=== PATIENT | male | born 1955 ===

== ENCOUNTER 2023-06-01 00:43 | Inpatient (IN) ==
[2023-06-01] MEDS ORDERED: Norepinephrine 4 MG/250mL D5W 4,000 MCG/250 ML BAG IV ONE (01:57)
[2023-06-01] MEDS: Norepinephrine 4 MG/250mL D5W 4,000 MCG/250 ML BAG IV SCH ×2 (03:25→07:54)
[2023-06-01 04:41] LABS: ABS Eosinophils 0.1 10^3/uL (0.0-0.5); ABS Lymphocytes 0.2 10^3/uL (1.0-4.8); ABS Monocytes 0.2 10^3/uL (0.0-1.1); Eosinophil % 2.1 %; Hematocrit 29.7 % (38-53); Hemoglobin 10.4 g/dL (13.2-16.3); Lymphocyte % 4.1 %; Mean Corpuscular Hemoglobin 32.8 pg (27-33); Mean Corpuscular Hgb Conc 34.9 g/dL (31-36); Platelet Count 134 10^3/uL (150-450); Red Blood Count 3.16 10^6/uL (4.06-5.63); Red Cell Distribution Width 13.4 % (12-17); White Blood Count 5.6 10^3/uL (3.6-10.2)
[2023-06-01 04:58] LABS: Albumin 3.1 g/dL (3.2-5.2); Albumin/Globulin Ratio 1.1 (1-3); Calcium 7.1 mg/dL (8.6-10.3); Creatinine, Serum 3.96 mg/dL (0.67-1.17); Globulin 2.7 g/dL (2-4); Magnesium 1.6 mg/dL (1.9-2.7); Potassium 4.6 mmol/L (3.5-5.0); Total Bilirubin 1.7 mg/dL (0.2-1.0); Total Protein 5.8 g/dL (6.4-8.9); eGFR CKD-EPI 15.6 (>60)
[2023-06-01] MEDS ORDERED: Cefepime 1 GM in Dextrose 1 GM/50 ML BAG IV ONE (05:00)
[2023-06-01] MEDS ORDERED: Lactated Ringers 1000 ml BAG 1,000 ML IV SCH (05:00)
[2023-06-01 05:53] LABS: TSH Ultra Thyroid Stim Horm 2.84 mcIU/mL (0.34-5.60)
[2023-06-01] MEDS ORDERED: Enoxaparin 40 MG/0.4 ML SYR SUBCUT SCH (06:00)
[2023-06-01 06:10] LABS: Rapid COVID-19 Molecular Undetected (Undetected)
[2023-06-01 06:12] LABS: Influenza A Molecular Negative (Negative); Influenza B Molecular Negative (Negative)
[2023-06-01] MEDS ORDERED: Magnesium Sulfate 2 gm BAG 2 GM/50 ML BAG IVPB ONE (06:14)
[2023-06-01] MEDS ORDERED: Lactated Ringers 1000 ml BAG 1,000 ML IV ONE (07:05)
[2023-06-01] MEDS ORDERED: NS 0.9% 1000 ml BAG 1,000 ML IV ONE (07:14)
[2023-06-01] MEDS ORDERED: HYDROmorphone 0.5 MG/0.5 ML SYRINGE IV SLOW PU PRN ×2 (08:03→14:16)
[2023-06-01 08:18] LABS: Direct Bilirubin 1.2 mg/dL (0.03-0.18); Indirect Bilirubin 0.5 mg/dL (0.3-1.0)
[2023-06-01 10:07] LABS: Urine Appearance Turbid; Urine Bilirubin Negative (Negative); Urine Blood Negative (Negative); Urine Color Amber; Urine Glucose Negative (Negative); Urine Ketones Negative (Negative); Urine Nitrite Negative (Negative); Urine Protein 2+(100 mg/dL) (Negative); Urine Specific Gravity 1.015 (1.002-1.030); Urine Urobilinogen Negative (Negative)
[2023-06-01 10:15] LABS: Urine Bacteria Absent (Absent); Urine Granular Casts Present (Absent); Urine Red Blood Cell 2+(6-10/hpf) (Absent); Urine White Blood Cell 3+(>20/hpf) (Absent)
[2023-06-01 10:18] LABS: Urine Creatinine Concentration 137.18 mg/dL (20.00-370.00); Urine Sodium Concentration < 18 mmol/L
[2023-06-01 10:59] LABS: Urine Osmo 251 mOsm/kg (150-1150)
[2023-06-01] MEDS: Azithromycin 500 mg/250 ml NS 500 MG/250 ML BAG IVPB SCH (12:19)
[2023-06-01] MEDS: Norepinephrine 16 MG/250mL NS 16,000 MCG/250 ML BAG IV SCH (12:50)
[2023-06-01 12:58] LABS: Calcium 7.2 mg/dL (8.6-10.3); Creatinine, Serum 3.95 mg/dL (0.67-1.17); Potassium 4.7 mmol/L (3.5-5.0); eGFR CKD-EPI 15.7 (>60)
[2023-06-01] MEDS: HYDROmorphone 0.5 MG/0.5 ML SYRINGE IV SLOW PU PRN ×2 (14:41→20:26)
[2023-06-01] MEDS: Heparin 5000 UNITS/ML 1 mL VIAL SUBCUT SCH ×2 (14:43→20:48)
[2023-06-01] MEDS ORDERED: Furosemide 100 mg/10 ml IV VIAL IV ONE (15:25)
[2023-06-01] MEDS ORDERED: Cefepime 1 GM in Dextrose 1 GM/50 ML BAG IV SCH (17:00)
[2023-06-01] MEDS ORDERED: Levalbuterol 1.25MG/0.5ML NEB.SOL INH PRN (18:58)
[2023-06-01] MEDS: Cefepime 1 GM in Dextrose 1 GM/50 ML BAG IV SCH (20:18)
[2023-06-01 22:54] LABS: Calcium 7.3 mg/dL (8.6-10.3); Creatinine, Serum 4.07 mg/dL (0.67-1.17); Potassium 4.5 mmol/L (3.5-5.0); eGFR CKD-EPI 15.1 (>60)
[2023-06-01 23:40] LABS: HIV 4th Generation Nonreactive (Nonreactive)
[2023-06-01 23:51] LABS: C Reactive Protein 313.26 mg/L (<8.01)
[2023-06-02 01:18] LABS: Hepatitis B Surface Antigen Nonreactive (Nonreactive)
[2023-06-02 01:35] LABS: Hepatitis B Surface Ab Not Immune (Immune)
[2023-06-02 01:36] LABS: Hepatitis C Antibody Negative (Negative)
[2023-06-02] MEDS: Norepinephrine 16 MG/250mL NS 16,000 MCG/250 ML BAG IV SCH (02:25)
[2023-06-02] MEDS: HYDROmorphone 0.5 MG/0.5 ML SYRINGE IV SLOW PU PRN ×3 (05:22→20:08)
[2023-06-02] MEDS: Heparin 5000 UNITS/ML 1 mL VIAL SUBCUT SCH ×3 (05:24→21:44)
[2023-06-02 05:50] LABS: ABS Eosinophils 0.1 10^3/uL (0.0-0.5); ABS Lymphocytes 0.3 10^3/uL (1.0-4.8); ABS Monocytes 0.3 10^3/uL (0.0-1.1); ABS Neutrophils 4.9 10^3/uL (1.5-7.6); Hematocrit 29.4 % (38-53); Hemoglobin 10.7 g/dL (13.2-16.3); Lymphocyte % 5.9 %; Mean Corpuscular Hemoglobin 33.8 pg (27-33); Mean Corpuscular Hgb Conc 36.4 g/dL (31-36); Mean Corpuscular Volume 92.8 fL (80-97); Mean Platelet Volume 9.2 fL (7.5-11.2); Nucleated Red Blood Cells % 0.1 %/100WBC (0.0-0.8); Platelet Count 188 10^3/uL (150-450); Red Blood Count 3.17 10^6/uL (4.06-5.63); Red Cell Distribution Width 13.4 % (12-17); White Blood Count 5.7 10^3/uL (3.6-10.2)
[2023-06-02 06:09] LABS: Calcium 7.6 mg/dL (8.6-10.3); Creatinine, Serum 3.98 mg/dL (0.67-1.17); Magnesium 2.2 mg/dL (1.9-2.7); Potassium 4.3 mmol/L (3.5-5.0); eGFR CKD-EPI 15.5 (>60)
[2023-06-02] MEDS: Cefepime 1 GM in Dextrose 1 GM/50 ML BAG IV SCH ×2 (08:45→20:39)
[2023-06-02] MEDS ORDERED: Furosemide 40 mg/4 ml IV VIAL IV ONE (09:49)
[2023-06-02] MEDS: Azithromycin 500 mg/250 ml NS 500 MG/250 ML BAG IVPB SCH (12:49)
[2023-06-02 16:42] LABS: Calcium 7.4 mg/dL (8.6-10.3); Creatinine, Serum 4.41 mg/dL (0.67-1.17); Potassium 4.2 mmol/L (3.5-5.0); eGFR CKD-EPI 13.7 (>60)
[2023-06-02 22:42] LABS: Calcium 7.5 mg/dL (8.6-10.3); Creatinine, Serum 4.48 mg/dL (0.67-1.17); Potassium 4.5 mmol/L (3.5-5.0); eGFR CKD-EPI 13.5 (>60)
[2023-06-03] MEDS: HYDROmorphone 0.5 MG/0.5 ML SYRINGE IV SLOW PU PRN ×4 (01:46→23:33)
[2023-06-03] MEDS: Heparin 5000 UNITS/ML 1 mL VIAL SUBCUT SCH ×3 (05:10→21:31)
[2023-06-03 05:39] LABS: ABS Eosinophils 0.3 10^3/uL (0.0-0.5); ABS Lymphocytes 0.5 10^3/uL (1.0-4.8); ABS Monocytes 0.6 10^3/uL (0.0-1.1); ABS Neutrophils 3.9 10^3/uL (1.5-7.6); Eosinophil % 5.1 %; Hematocrit 29.3 % (38-53); Hemoglobin 10.1 g/dL (13.2-16.3); Lymphocyte % 9.1 %; Mean Corpuscular Hemoglobin 32.3 pg (27-33); Mean Corpuscular Hgb Conc 34.6 g/dL (31-36); Mean Corpuscular Volume 93.4 fL (80-97); Mean Platelet Volume 9.1 fL (7.5-11.2); Platelet Count 199 10^3/uL (150-450); Red Blood Count 3.13 10^6/uL (4.06-5.63); Red Cell Distribution Width 13.8 % (12-17); White Blood Count 5.2 10^3/uL (3.6-10.2)
[2023-06-03 05:54] LABS: Calcium 7.8 mg/dL (8.6-10.3); Creatinine, Serum 4.68 mg/dL (0.67-1.17); Magnesium 2.4 mg/dL (1.9-2.7); Potassium 4.3 mmol/L (3.5-5.0); eGFR CKD-EPI 12.8 (>60)
[2023-06-03] MEDS: Cefepime 1 GM in Dextrose 1 GM/50 ML BAG IV SCH ×2 (07:33→20:20)
[2023-06-03] MEDS: Azithromycin 500 mg/250 ml NS 500 MG/250 ML BAG IVPB SCH (10:53)
[2023-06-04 05:30] LABS: Calcium 7.8 mg/dL (8.6-10.3); Creatinine, Serum 4.89 mg/dL (0.67-1.17); Potassium 4.4 mmol/L (3.5-5.0); eGFR CKD-EPI 12.1 (>60)
[2023-06-04] MEDS: Heparin 5000 UNITS/ML 1 mL VIAL SUBCUT SCH ×3 (05:46→20:37)
[2023-06-04] MEDS: HYDROmorphone 0.5 MG/0.5 ML SYRINGE IV SLOW PU PRN ×3 (06:15→19:23)
[2023-06-04] MEDS: Cefepime 1 GM in Dextrose 1 GM/50 ML BAG IV SCH ×2 (08:30→20:38)
[2023-06-04] MEDS: NS 0.9% 1000 ml BAG 1,000 ML IV SCH ×2 (11:20→23:20)
[2023-06-04 12:54] LABS: Complement C3 105 mg/dL (75 - 175)
[2023-06-04 15:04] LABS: Urine Appearance Clear; Urine Bilirubin Negative (Negative); Urine Blood 1+ (Negative); Urine Color Straw; Urine Glucose Negative (Negative); Urine Ketones Negative (Negative); Urine Nitrite Negative (Negative); Urine Protein Negative (Negative); Urine Specific Gravity 1.006 (1.002-1.030); Urine Urobilinogen Negative (Negative)
[2023-06-04 15:07] LABS: Urine Bacteria 1+ (Absent); Urine Red Blood Cell Trace(0-2/hpf) (Absent); Urine Squamous Epithelial Cell Present (Absent); Urine White Blood Cell 1+(6-10/hpf) (Absent)
[2023-06-04 15:55] LABS: Kappa Free Light Chain 6.25 mg/dL; Lambda Free Light Chain, S 4.31 mg/dL
[2023-06-04 15:59] LABS: C-ANCA Negative (Negative); P-ANCA Negative (Negative)
[2023-06-04 19:00] LABS: Calcium 7.9 mg/dL (8.6-10.3); Creatinine, Serum 4.37 mg/dL (0.67-1.17); Potassium 4.9 mmol/L (3.5-5.0); eGFR CKD-EPI 13.9 (>60)
[2023-06-05] MEDS: HYDROmorphone 0.5 MG/0.5 ML SYRINGE IV SLOW PU PRN ×4 (01:34→19:30)
[2023-06-05] MEDS: Heparin 5000 UNITS/ML 1 mL VIAL SUBCUT SCH ×3 (05:10→21:14)
[2023-06-05 05:28] LABS: Hematocrit 29.2 % (38-53); Hemoglobin 10.2 g/dL (13.2-16.3); Mean Corpuscular Hemoglobin 32.7 pg (27-33); Mean Corpuscular Volume 93.3 fL (80-97); Mean Platelet Volume 8.4 fL (7.5-11.2); Platelet Count 261 10^3/uL (150-450); Red Blood Count 3.13 10^6/uL (4.06-5.63); Red Cell Distribution Width 13.7 % (12-17); White Blood Count 5.4 10^3/uL (3.6-10.2)
[2023-06-05 05:43] LABS: Calcium 7.9 mg/dL (8.6-10.3); Creatinine, Serum 3.98 mg/dL (0.67-1.17); Magnesium 2.4 mg/dL (1.9-2.7); Potassium 4.8 mmol/L (3.5-5.0); eGFR CKD-EPI 15.5 (>60)
[2023-06-05 05:46] LABS: ABS Eosinophils 0.5 10^3/uL (0.0-0.5); ABS Lymphocytes 0.6 10^3/uL (1.0-4.8); ABS Monocytes 0.7 10^3/uL (0.0-1.1); ABS Neutrophils 3.5 10^3/uL (1.5-7.6); Eosinophil % 9.8 %; Lymphocyte % 11.5 %
[2023-06-05] MEDS: Cefepime 1 GM in Dextrose 1 GM/50 ML BAG IV SCH ×2 (07:35→21:14)
[2023-06-05 09:06] LABS: Albumin 2.3 g/dL (3.4-4.7); Flag, M-protein Isotype Negative (Negative); Total Protein 5.4 g/dL (6.3 - 7.9)
[2023-06-05] MEDS: NS 0.9% 1000 ml BAG 1,000 ML IV SCH (12:29)
[2023-06-05 16:45] LABS: Calcium 8.3 mg/dL (8.6-10.3); Creatinine, Serum 3.29 mg/dL (0.67-1.17); Potassium 5.1 mmol/L (3.5-5.0); eGFR CKD-EPI 19.5 (>60)
[2023-06-06] MEDS: HYDROmorphone 0.5 MG/0.5 ML SYRINGE IV SLOW PU PRN ×2 (01:37→07:51)
[2023-06-06] MEDS: NS 0.9% 1000 ml BAG 1,000 ML IV SCH (01:50)
[2023-06-06] MEDS: Heparin 5000 UNITS/ML 1 mL VIAL SUBCUT SCH ×3 (05:56→20:36)
[2023-06-06] MEDS: Cefepime 1 GM in Dextrose 1 GM/50 ML BAG IV SCH ×2 (08:59→20:32)
[2023-06-06] MEDS ORDERED: HYDROcodone/ACETAMIN 5/325 mg TAB PO PRN (09:01)
[2023-06-06 10:16] LABS: Hematocrit 32.1 % (38-53); Mean Corpuscular Hemoglobin 32.3 pg (27-33); Mean Corpuscular Hgb Conc 34.3 g/dL (31-36); Mean Platelet Volume 8.4 fL (7.5-11.2); Platelet Count 300 10^3/uL (150-450); Red Blood Count 3.41 10^6/uL (4.06-5.63); Red Cell Distribution Width 13.8 % (12-17); White Blood Count 5.3 10^3/uL (3.6-10.2)
[2023-06-06] MEDS ORDERED: NS 0.9% 500 ml BAG 500 ML IV ONE (10:36)
[2023-06-06] MEDS ORDERED: NS 0.9% 1000 ml BAG 1,000 ML IV SCH ×2 (10:45→15:30)
[2023-06-06 10:47] LABS: Calcium 8.6 mg/dL (8.6-10.3); Creatinine, Serum 2.42 mg/dL (0.67-1.17); Magnesium 2.4 mg/dL (1.9-2.7); Potassium 4.6 mmol/L (3.5-5.0); eGFR CKD-EPI 28.2 (>60)
[2023-06-06 11:00] LABS: ABS Eosinophils 0.6 10^3/uL (0.0-0.5); ABS Lymphocytes 0.7 10^3/uL (1.0-4.8); ABS Monocytes 0.5 10^3/uL (0.0-1.1); ABS Neutrophils 3.5 10^3/uL (1.5-7.6); Eosinophil % 10.6 %; Lymphocyte % 13.5 %
[2023-06-06] MEDS ORDERED: NS 0.9% 1000 ml BAG 1,000 ML IV ONE (15:18)
[2023-06-06 15:48] LABS: PLA2R, Immunofluorescence, S Negative (Negative)
[2023-06-06 18:38] LABS: Calcium 8.4 mg/dL (8.6-10.3); Creatinine, Serum 1.92 mg/dL (0.67-1.17); Potassium 4.6 mmol/L (3.5-5.0); eGFR CKD-EPI 37.2 (>60)
[2023-06-06] MEDS: HYDROcodone/ACET. 7.5/325 LIQ 15 ML UDC PO PRN (20:36)
[2023-06-07] MEDS: HYDROcodone/ACET. 7.5/325 LIQ 15 ML UDC PO PRN (05:38)
[2023-06-07] MEDS: Heparin 5000 UNITS/ML 1 mL VIAL SUBCUT SCH (05:38)
[2023-06-07 06:08] LABS: ABS Eosinophils 0.4 10^3/uL (0.0-0.5); ABS Lymphocytes 0.8 10^3/uL (1.0-4.8); ABS Monocytes 0.6 10^3/uL (0.0-1.1); ABS Neutrophils 4.4 10^3/uL (1.5-7.6); ABS Nucleated RBC 0.01 10^3/ul; Eosinophil % 7.2 %; Hematocrit 29.9 % (38-53); Hemoglobin 10.3 g/dL (13.2-16.3); Lymphocyte % 12.1 %; Mean Corpuscular Hemoglobin 32.3 pg (27-33); Mean Corpuscular Hgb Conc 34.6 g/dL (31-36); Mean Corpuscular Volume 93.4 fL (80-97); Nucleated Red Blood Cells % 0.1 %/100WBC (0.0-0.8); Platelet Count 322 10^3/uL (150-450); White Blood Count 6.2 10^3/uL (3.6-10.2)
[2023-06-07 06:29] LABS: Calcium 8.2 mg/dL (8.6-10.3); Creatinine, Serum 1.62 mg/dL (0.67-1.17); Magnesium 2.1 mg/dL (1.9-2.7); Potassium 4.7 mmol/L (3.5-5.0); eGFR CKD-EPI 45.7 (>60)
[2023-06-07] MEDS ORDERED: NS 0.9% 1000 ml BAG 1,000 ML IV ONE ×2 (07:21→10:05)
[2023-06-07] MEDS ORDERED: NS 0.9% 1000 ml BAG 1,000 ML IV SCH (07:30)
[2023-06-07] MEDS: Cefepime 1 GM in Dextrose 1 GM/50 ML BAG IV SCH (09:11)
[2023-06-07 09:24] VITALS: BP 157/69
== END 2023-06-07 13:40 | disposition home or self-care (01) | DRG 720 ==
LOC: ICU 03:19 → SUATTDRO 04:19 → MED 06-05 15:07
PROVIDERS: ADMIT Internal Medicine; ATTEND Internal Medicine